=== PATIENT | female | born 1960 | race American Indian/Alaskan Native ===

== ENCOUNTER 2021-08-21 11:04 | Emergency (ER) | payer BC ==
[~2021-08-21] VITALS: Ht 165.1 cm; Wt 86.6 kg
[2021-08-21 12:12] LABS: BASOPHILS ABSOLUTE AUTO 0.06 K/mm3 (0.00-0.23); BASOPHILS PERCENT AUTO 1 % (0-2); EOSINOPHILS ABSOLUTE AUTO 0.21 K/mm3 (0.00-0.68); EOSINOPHILS PERCENT AUTO 3 % (0-6); Hematocrit 48.5 % (33.0-51.0); Hemoglobin 15.5 g/dL (11.5-16.0); IMMATURE GRAN ABSOLUTE AUTO 0.04 K/mm3 (0.00-0.10); IMMATURE GRAN PERCENT AUTO 1 % (0-1); LYMPHOCYTES ABSOLUTE AUTO 1.36 K/mm3 (0.84-5.20); LYMPHOCYTES PERCENT AUTO 16 % (21-46); MONOCYTES PERCENT AUTO 10 % (4-13); Mean Corpuscular HGB 33.7 pg (26.0-34.0); Mean Corpuscular Volume 105 fL (80-100); Mean Platelet Volume 11.2 fL (9.1-12.4); NEUTROPHILS ABSOLUTE AUTO 5.96 K/mm3 (1.96-9.15); NEUTROPHILS PERCENT AUTO 71 % (41-73); Platelet Count 195 K/mm3 (150-400); RDW Standard Deviation 62.1 fL (35.1-46.3); White Blood Cell Count 8.43 K/mm3 (4.00-11.30)
[2021-08-21 12:29] LABS: Albumin/Globulin Ratio 1.2 (0.8-1.8); Bilirubin, Total 0.8 mg/dL (0.1-1.0); Bun/Creatinine Ratio 21.9 (12.0-20.0); Calcium, Blood 9.1 mg/dL (8.5-10.1); Creatinine, Blood 0.87 mg/dL (0.40-1.00); Globulin, Blood 3.4 g/dL (2.2-4.0); Potassium, Blood 4.6 mmol/L (3.5-5.5); Total Protein, Blood 7.4 g/dL (6.4-8.2)
== END 2021-08-21 14:27 | disposition home or self-care (01) ==
LOC: ER 11:04
PROVIDERS: Physician Assistant
DX: J84.9 Interstitial pulmonary disease, unspecified (principal); R94.31 Abnormal electrocardiogram [ECG] [EKG]; J43.9 Emphysema, unspecified; Z99.81 Dependence on supplemental oxygen
CPT/HCPCS: 36415; 71046; 80053; 83880; 84484; 85025; 93005; 93010; 99283-25

== ENCOUNTER 2021-10-27 09:41 | Day surgery (SDC) | payer BC ==
[~2021-10-27] VITALS: Ht 165.1 cm; Wt 83.5 kg
[~2021-10-27 09:41] MED LIST: LEVSOD75 PO; MYCOPHENOLATE500 M2 PO; OMEP20ER PO; OYSTER SHELL 51 EAC2 PO; Prozac20 MG PO; THERA-D2000 UNIT PO; TOPI25 PO
--- NOTE | 2021-10-27 12:25 | NUR ---
PT TO RECOVERY ROOM POST PROCEDURE. PT AWAKE AND CONVERSING APPROPRIATELY; DENIES PAIN POST PROCEDURE. MONITOR SR 60'S, B/P 119/83, SPO2 96% ON OXIMIZER, AFEBRILE. R RADIAL SITE NO SWELLING/HEMATOMA, TR BAND IN PLACE; RUE POSITIVE PLEUTH POST TR BAND PLACEMENT. R AC NO SWELLING/HEMATOMA, NADIR AND TEGADERM DRSG INTACT. PT'S AT BEDSIDE, ATTENTIVE.
--- NOTE | 2021-10-27 12:50 | NUR ---
PT TRANSITIONED TO 4L NC, SPO2 92-94%. PT DENIES FEELING SOB.
--- NOTE | 2021-10-27 13:35 | NUR ---
PT HAVING BUBBLE STUDY PERFORMED.
--- NOTE | 2021-10-27 15:00 | NUR ---
PT DRESSED SELF WITH MINIMAL ASSISTANCE. TR BAND REMOVED, CLOTH DOT AND WRIST IMMOBILIZER PLACED; IV REMOVED-CANNULA INTACT. PT DECLINED SLING.
--- NOTE | 2021-10-27 15:09 | NUR ---
PT AND RECEIVED DISCHARGE INSTRUCTIONS, MED LIST AND AFTER CARE INSTRUCTIONS; VERBALIZED GOOD UNDERSTANDING. PT LEFT FACILITY VIA W/C, CONDITION STABLE.
== END 2021-10-27 15:09 | disposition home or self-care (01) ==
LOC: MHTC 09:41
DX: I25.118 Atherosclerotic heart disease of native coronary artery with other forms of angina pectoris (principal); R94.31 Abnormal electrocardiogram [ECG] [EKG]; I31.3 Pericardial effusion (noninflammatory); I27.20 Pulmonary hypertension, unspecified; J96.11 Chronic respiratory failure with hypoxia; E03.9 Hypothyroidism, unspecified; J84.10 Pulmonary fibrosis, unspecified; J43.9 Emphysema, unspecified; Z87.891 Personal history of nicotine dependence
CPT/HCPCS: 76937; 93308; 93456; 99152; A9270; J1644; J2250; J3010; J7030; Q9967

== ENCOUNTER 2021-12-15 12:54 | Inpatient (IN) | payer BC ==
[~2021-12-15] VITALS: Ht 165.1 cm; Wt 84.2 kg
[~2021-12-15 12:54] MED LIST changes: +ASPI81CH PO; +ONDA4ODT MM; +PROMETHAZINE12.5 M1 PO
[2021-12-15 13:42] LABS: BASOPHILS ABSOLUTE AUTO 0.07 K/mm3 (0.00-0.23); BASOPHILS PERCENT AUTO 1 % (0-2); EOSINOPHILS ABSOLUTE AUTO 0.09 K/mm3 (0.00-0.68); EOSINOPHILS PERCENT AUTO 1 % (0-6); Hematocrit 48.8 % (33.0-51.0); Hemoglobin 15.2 g/dL (11.5-16.0); IMMATURE GRAN ABSOLUTE AUTO 0.05 K/mm3 (0.00-0.10); IMMATURE GRAN PERCENT AUTO 1 % (0-1); LYMPHOCYTES ABSOLUTE AUTO 0.94 K/mm3 (0.84-5.20); LYMPHOCYTES PERCENT AUTO 11 % (21-46); MONOCYTES ABSOLUTE AUTO 0.64 K/mm3 (0.16-1.47); MONOCYTES PERCENT AUTO 7 % (4-13); Mean Corpuscular HGB 31.2 pg (26.0-34.0); Mean Corpuscular HGB Conc 31.1 g/dL (31.5-36.5); Mean Corpuscular Volume 100 fL (80-100); Mean Platelet Volume 11.7 fL (9.1-12.4); NEUTROPHILS ABSOLUTE AUTO 7.09 K/mm3 (1.96-9.15); NEUTROPHILS PERCENT AUTO 80 % (41-73); NRBC ABSOLUTE 0.02 K/mm3 (0.00-0.02); NRBC Auto 0.2 /100 WBC (0.0-0.2); Platelet Count 208 K/mm3 (150-400); RDW Coefficient Variation 16.2 % (11.7-14.2); RDW Standard Deviation 58.2 fL (35.1-46.3); Red Blood Cell Count 4.87 M/mm3 (3.80-5.20); White Blood Cell Count 8.88 K/mm3 (4.00-11.30)
[2021-12-15 14:05] LABS: Albumin, Blood 3.3 g/dL (3.4-5.0); Bilirubin, Total 1.6 mg/dL (0.1-1.0); Bun/Creatinine Ratio 22.5 (12.0-20.0); Calcium, Blood 9.3 mg/dL (8.5-10.1); Creatinine, Blood 0.89 mg/dL (0.40-1.00); Globulin, Blood 3.4 g/dL (2.2-4.0); Potassium, Blood 4.6 mmol/L (3.5-5.5); Total Protein, Blood 6.7 g/dL (6.4-8.2)
[2021-12-15 16:04] LABS: Albumin, Blood 3.5 g/dL (3.4-5.0); Albumin/Globulin Ratio 1.1 (0.8-1.8); Bilirubin, Direct 0.6 mg/dL (0.0-0.3); Bilirubin, Indirect 1.1 mg/dL (0.1-0.7); Bilirubin, Total 1.7 mg/dL (0.1-1.0); Globulin, Blood 3.3 g/dL (2.2-4.0); Total Protein, Blood 6.8 g/dL (6.4-8.2)
[2021-12-15] MEDS ORDERED: SILD25T PO (17:49)
[2021-12-15] MEDS ORDERED: OMEP20ER PO (17:50)
--- NOTE | 2021-12-15 19:48 | NUR ---
ADMISSION: REPORT RECEIVED FROM POWERTRAIN CALIBRATION ENGINEER. PT TO UNIT AT ABOUT 1910, A/O ABLE TO SLIDE SELF FROM GURNEY TO BED. SOME SOB WITH EXERTION, PT ABLE TO RECOVER QUICKLY AFTER RESTING. PT IS ON 7L HIGH FLOW NC, WHICH IS PT BASELINE. UNABLE TO GET ACCURATE PULSE OX READING DUE TO PT HAVING RAYNAUD'S DISEASE. RT CALLED TO TROUBLE SHOOT. PT DOES NOT APPEAR TO HAVE INCREASED WOB OR RESPIRATORY DISTRESS, DENIES CP. PT DENIES ABD PAIN OR N/V AT THIS TIME. IV FLUIDS INFUSING. REPORT GIVEN AT BEDSIDE TO NEFTALI WAITE RN.
--- NOTE | 2021-12-16 04:13 | NUR ---
SHIFT SUMMARY PATIENT ADMITTED FOR ACUTE MARGARET, SURGICAL CONSULT WITH . A&OX4 NPO SINCE MIDNIGHT. IV FLUIDS RUNNING. PATIENT HAS HX OF PULMNARY FIBROSIS, AND EDEMA. BASELINE 7 L NC, CURRENTLY 7 L HIGHFLOW WITH SATS 88-91%. HX OF RAYNAUDS SO PULSE OX IS NOT ALWAYS OBTAINABLE. PATIENT DENIES CHEST PAIN SOB AT THIS TIME, DOES GET WINDED AND INCREASED WOB WHEN UP TO THE BATHROOM. SHE AMBULATES WITH THE FWW, AND 1 ASSIST. DENIES N/V AT THIS TIME. DENIES NEED FOR PAIN MEDICATION. VOIDS DARK TEA COLOR URINE, SMALL STOOLS PASSED THIS SHIFT, SEMAJ COLORED. VSS. CALL LIGHT IN REACH, REPORT TO DAY RN.
[2021-12-16 05:21] LABS: BASOPHILS ABSOLUTE AUTO 0.08 K/mm3 (0.00-0.23); BASOPHILS PERCENT AUTO 1 % (0-2); EOSINOPHILS ABSOLUTE AUTO 0.07 K/mm3 (0.00-0.68); EOSINOPHILS PERCENT AUTO 1 % (0-6); Hematocrit 49.8 % (33.0-51.0); Hemoglobin 14.8 g/dL (11.5-16.0); IMMATURE GRAN ABSOLUTE AUTO 0.09 K/mm3 (0.00-0.10); IMMATURE GRAN PERCENT AUTO 1 % (0-1); LYMPHOCYTES PERCENT AUTO 16 % (21-46); MONOCYTES ABSOLUTE AUTO 0.74 K/mm3 (0.16-1.47); MONOCYTES PERCENT AUTO 8 % (4-13); Mean Corpuscular HGB 31.2 pg (26.0-34.0); Mean Corpuscular HGB Conc 29.7 g/dL (31.5-36.5); NEUTROPHILS ABSOLUTE AUTO 7.28 K/mm3 (1.96-9.15); NEUTROPHILS PERCENT AUTO 74 % (41-73); Platelet Count 190 K/mm3 (150-400); RDW Coefficient Variation 16.5 % (11.7-14.2); RDW Standard Deviation 61.6 fL (35.1-46.3); Red Blood Cell Count 4.75 M/mm3 (3.80-5.20); White Blood Cell Count 9.86 K/mm3 (4.00-11.30)
[2021-12-16 05:24] LABS: Mean Corpuscular Volume 105 fL (80-100)
[2021-12-16 06:03] LABS: Albumin, Blood 2.8 g/dL (3.4-5.0); Albumin/Globulin Ratio 0.9 (0.8-1.8); Bilirubin, Total 1.7 mg/dL (0.1-1.0); Bun/Creatinine Ratio 31.4 (12.0-20.0); Calcium, Blood 8.2 mg/dL (8.5-10.1); Creatinine, Blood 0.86 mg/dL (0.40-1.00); Potassium, Blood 4.9 mmol/L (3.5-5.5); Total Protein, Blood 5.8 g/dL (6.4-8.2)
--- NOTE | 2021-12-16 13:00 | NUR ---
patient to imaging via [facility]
--- NOTE | 2021-12-16 17:44 | NUR ---
SHIFT SUMMARY NO ACUTE CHANGES THIS SHIFT. PATIENT HAD IMAGING DONE TODAY, DR GEORGE RULED OUT CHOLECYSTITIS, SCHEDULED A CT FOR TOMMORROW TO DETERMINE SOURCE OF ABDOMINAL PAIN/NAUSEA/DIARRHEA. PATIENT TOLERATING REGULAR DIET AT THIS TIME. VOIDING WELL, HAS HAD DIARRHEA A COUPLE TIMES TODAY. AMBULATING WELL WITH FWW TO BR. CALLS APPROPRIATELY, WILL REPORT TO ONCOMING RN.
--- NOTE | 2021-12-17 05:12 | NUR ---
SHIFT SUMMARY: PATIENT HAS HAD NO BM'S, PAIN OR NAUSEA THIS SHIFT. UP TO THE BATHROOM WITH ASSIST X1. 02 UP TO 8L FOR ACTIVITY. IVF ARE INFUSING PER MAR. CALL CROCKETT IS WITH IN REACH.
--- NOTE | 2021-12-17 16:05 | NUR ---
SHIFT SUMMARY NO ACUTE CHANGES THIS SHIFT. PATIENT DENIES ABDOMINAL PAIN T/O DAY, HAS HAD INTERMITTENT NAUSEA & EMESIS X1. MINIMAL APPETITE R/T N/V. UP TO BATHROOM WELL SBA T/O DAY. VOIDING WELL. REMIANS ON 7L O2 VIA HIGH FLOW NASAL CANULA. CALLS APPROPRIATELY, WILL REPORT TO ONCOMING RN.
[2021-12-18 04:58] LABS: Hematocrit 49.9 % (33.0-51.0); Hemoglobin 15.6 g/dL (11.5-16.0); Mean Corpuscular HGB 32.1 pg (26.0-34.0); Mean Corpuscular HGB Conc 31.3 g/dL (31.5-36.5); Mean Corpuscular Volume 103 fL (80-100); Mean Platelet Volume 11.9 fL (9.1-12.4); NRBC ABSOLUTE 0.08 K/mm3 (0.00-0.02); NRBC Auto 0.7 /100 WBC (0.0-0.2); Platelet Count 177 K/mm3 (150-400); RDW Coefficient Variation 17.6 % (11.7-14.2); RDW Standard Deviation 60.8 fL (35.1-46.3); Red Blood Cell Count 4.86 M/mm3 (3.80-5.20)
[2021-12-18 05:17] LABS: Albumin, Blood 3.3 g/dL (3.4-5.0); Anion Gap 11 mmol/L (6-16); Blood Urea Nitrogen 33 mg/dL (8-24); Bun/Creatinine Ratio 33.8 (12.0-20.0); CO2, Blood 20 mmol/L (21-32); Calcium, Blood 8.2 mg/dL (8.5-10.1); Chloride, Blood 111 mmol/L (98-108); Creatinine, Blood 0.98 mg/dL (0.40-1.00); Glomerular Filtration Rate 65 (60-); Glucose, Blood 103 mg/dL (70-99); Magnesium, Blood 2.4 mg/dL (1.6-2.4); Phosphorus, Blood 3.1 mg/dL (2.5-4.9); Potassium, Blood 4.7 mmol/L (3.5-5.5); Sodium, Blood 142 mmol/L (136-145)
--- NOTE | 2021-12-18 06:27 | NUR ---
PT APPEARED TO SLEEP FOR MAJORITY OF NIGHT. PT DENIED ABD PAIN/N/V, REP +FLATUS. PT REP SHE IS BEGINNING TO FEEL A LITTLE HUNGRY THIS AM. O2 SATS 89-92% ON 7-9L HIGH FLOW O2. PT IS SOB W/EXERTION, REP SHE FEELS MORE SOB THAN BASELINE. O2 SAT DIFFICULT TO OBTAIN R/T REYNAUDS. IVF CONT PER ORDERS.
[2021-12-18 13:44] LABS: Albumin, Blood 3.5 g/dL (3.4-5.0); Albumin/Globulin Ratio 1.2 (0.8-1.8); Bilirubin, Direct 0.8 mg/dL (0.0-0.3); Bilirubin, Indirect 0.5 mg/dL (0.1-0.7); Bilirubin, Total 1.3 mg/dL (0.1-1.0); Total Protein, Blood 6.5 g/dL (6.4-8.2)
--- NOTE | 2021-12-18 18:41 | NUR ---
SHIFT SUMMARY PATIENT ALERT AND ORIENTED THROUGHOUT SHIFT. 7L O2 VIA NC IS BASELINE. SOB WITH EXERTION, SBA TO AMBULATE INTO BATHROOM. INTERMITTENT NAUSEA, SCHEDULED REGLAN AND PRN ZOFRAN. ECHO COMPLETED LATE IN SHIFT. PLAN FOR DISCHARGE TOMORROW 12/19/21 AND FOLLOW UP WITH GI FOR EGD. RATES ABD PAIN 1-2/10. DECLINES PAIN MEDS. TOLERATED SMALL AMOUNTS OF PO INTAKE. FLUID RESTRICTION OF 1500 MLS STARTED THIS SHIFT. LASIX DOSE INCREASED TO BID. ATTENTIVE IN ROOM DURING AFTERNOON.
--- NOTE | 2021-12-19 07:40 | NUR ---
PT VSS T/O NIGHT, SATS >90% ON 7LO2 PER BASELINE. PT STILL NEEDS ON INC TO 9L W/AMB. PT REP WOB SOMEWHAT IMPOVED THIS AM. LUNGS DIM W/CRACKLES IN BASES, PT HAS OCC PROD COUGH. PT DENIED ABD PAIN/N/V, REP +FLATUS. PT AMB W/FWW+SBA, REP TIFFANY AMB BETTER THIS AM.
[2021-12-19 10:55] LABS: BASOPHILS ABSOLUTE AUTO 0.09 K/mm3 (0.00-0.23); BASOPHILS PERCENT AUTO 1 % (0-2); EOSINOPHILS ABSOLUTE AUTO 0.13 K/mm3 (0.00-0.68); EOSINOPHILS PERCENT AUTO 1 % (0-6); Hematocrit 50.8 % (33.0-51.0); Hemoglobin 15.6 g/dL (11.5-16.0); IMMATURE GRAN ABSOLUTE AUTO 0.11 K/mm3 (0.00-0.10); IMMATURE GRAN PERCENT AUTO 1 % (0-1); LYMPHOCYTES ABSOLUTE AUTO 1.52 K/mm3 (0.84-5.20); LYMPHOCYTES PERCENT AUTO 14 % (21-46); MONOCYTES ABSOLUTE AUTO 0.91 K/mm3 (0.16-1.47); MONOCYTES PERCENT AUTO 8 % (4-13); Mean Corpuscular HGB 31.3 pg (26.0-34.0); Mean Corpuscular HGB Conc 30.7 g/dL (31.5-36.5); Mean Corpuscular Volume 102 fL (80-100); Mean Platelet Volume 12.1 fL (9.1-12.4); NEUTROPHILS ABSOLUTE AUTO 8.49 K/mm3 (1.96-9.15); NEUTROPHILS PERCENT AUTO 75 % (41-73); NRBC ABSOLUTE 0.06 K/mm3 (0.00-0.02); NRBC Auto 0.5 /100 WBC (0.0-0.2); Platelet Count 172 K/mm3 (150-400); RDW Coefficient Variation 17.8 % (11.7-14.2); RDW Standard Deviation 61.7 fL (35.1-46.3); Red Blood Cell Count 4.98 M/mm3 (3.80-5.20); White Blood Cell Count 11.25 K/mm3 (4.00-11.30)
[2021-12-19 11:01] LABS: Bicarbonate Venous 21.8 mmol/L (24.0-30.0); PCO2 Venous 40.5 mmHg (38-42); pH Blood Venous 7.35 (7.34-7.37)
[2021-12-19 11:16] LABS: Magnesium, Blood 1.9 mg/dL (1.6-2.4)
[2021-12-19 11:41] LABS: Albumin, Blood 3.2 g/dL (3.4-5.0); Bilirubin, Total 1.4 mg/dL (0.1-1.0); Bun/Creatinine Ratio 33.5 (12.0-20.0); Calcium, Blood 8.5 mg/dL (8.5-10.1); Creatinine, Blood 0.96 mg/dL (0.40-1.00); Globulin, Blood 3.1 g/dL (2.2-4.0); Potassium, Blood 3.7 mmol/L (3.5-5.5); Total Protein, Blood 6.3 g/dL (6.4-8.2)
--- NOTE | 2021-12-19 12:10 | NUR ---
TRANSFER SUMMARY REPORT PROVIDED TO LEIGH GARCIA, ICU TRANSFER
--- NOTE | 2021-12-19 12:30 | NUR ---
Pt arrived from surgical floor Alert and oriented, SR, SBP > 100. Feels short of breath, difficult to get accurate O2Sat reading due to cool hands and feet, on 10L HF NC. Pt states she is on 7L NC at home with O2 Sat goal of 88-92%. ABG done showing PaO2 of 47.5. Placed on NRB at 15L. Transported to CT department. CT head and abdomen completed, CTA chest completed. Pt tolerated well. at bedside, both pt and oriented to ICU. All questions answered.
--- NOTE | 2021-12-19 12:30 | NUR ---
PT AMB W/FWW ON 9LNC (BASELINE WITH AMB) TO BRP AT 1130. APPROX 1140 PT PULLED BRP CALL LIGHT, PSYCHIATRIC NURSE CALLED ME CONOR WITH PT REP OF DIZZINESS/LIGHTHEADEDNESS. PT FACIAL APPEARANCE WAS HERNANDEZ/DRAINED OF COLOR, EYES WERE OPEN, ANSWERING QUESTIONS APPROPRIATELY. WHEELED CHAIR INTO BRP, 2 PP MAX ASSIST TO PIVOT TO CHAIR, MOVED INTO ROOM, ELEVATED BLE, TOOK VITAL SIGNS CHARTED, CALLED DOCTOR WHO CAME RIGHT AWAY TO ROOM. THEN ALONG CAME NURSING SUPER, AND ICU CHARGE. MAX ASSIST BACK TO BED, PLACED IN [place], VITAL SIGNS TAKEN CHARTED. DOCTOR ORDERED BOLUS AND TRANSFER TO ICU.
[2021-12-19 13:21] LABS: PCO2 Arterial 36.3 mmHg (35-45); pH Blood Arterial 7.38 (7.35-7.45)
[2021-12-19 13:22] LABS: PO2 Arterial 47.5 mmHg (80-100)
--- NOTE | 2021-12-19 14:07 | NUR ---
CANINE ENFORCEMENT OFFICER AT 1210 WAS ASKED TO SEE PATIENT ON THE SURGICAL FLOOR. SHE RECIENTLY WAS UP TO THE BATHROOM BUT SUDDENLY DROPPED HER BP AND BECAME VERY PALE. SHE WAS ABLE TO GET BACK TO BED WITH STAFF ASSISTANCE. HER BP WAS 50/40 THEN 60/40'S THEN 80'S/70'S WHILE LAYING [place] IN BED. DR ESTRADA WAS AT BEDSIDE AND WANTED PT TO BE MOVED TO ICU FOR POSSIBLE PRESSURES. ONCE SHE WAS TRANSFERED TO ICU HER BP CAME UP. HE DECIDED NOT TO GIVE THE BOLUS AND SHE IS TO BE PCU STATUS. SHE COMPLAINED OF ACUTE HEADACHE AND WAS ALSO COMPLAINING OF UPPER MIDLINE ABDOMINAL PAIN. HER OXYGENATION WENT DOWN TO 80'S ON 8-10L NC ABG DONE AND PO2 WAS 47. SHE WAS PUT ON 15L FACEMASK AND BROUGHT DOWNT TO CT. ROSANNA Pedro RN IN ICU ASSUMED CARE OF PATIENT. DR ESTRADA WAS INFORMED OF THE ABG RESULTS AND WE ARE AWAITING CT RESULTS.
[2021-12-19 15:16] LABS: Bilirubin, Direct 1.1 mg/dL (0.0-0.3)
[2021-12-19 16:26] LABS: Influenza A, PCR NEGATIVE (NEGATIVE); Influenza B, PCR NEGATIVE (NEGATIVE); Resp Syncytial Virus, PCR NEGATIVE (NEGATIVE); SARS-Cov-2 (COVID-19) PCR, MMC NEGATIVE (NEGATIVE)
--- NOTE | 2021-12-19 18:43 | NUR ---
END OF SHIFT SUMMARY ALERT AND ORIENTED TOLERATING BIPAP WELL, SPO2 98% DENIES NAUSEA, NO VOMITING, BS HYPOACTIVE VOIDS, NO URINE OUTPUT SINCE ADMIT TO ICU BUT VOIDED 700ML IMMEDIATELY PRIOR TO TRANSFER SKIN INTACT, BRUISING TO PREVIOUS IV SITES AND LAB DRAW SITES. AT BEDSIDE. ALL QUESTIONS ANSWERED. PIV X1, ATTEMPTED TO PLACE 2ND PIV WITHOUT SUCCESS.
--- NOTE | 2021-12-19 22:27 | NUR ---
ASSUMPTION OF CARE: ASSSUMED CARE OF PT AT 1900. PT IS ALERT AND ORIETED IN BED AT THIS TIME. BIPAP MASK IS IN PLACE WHEN RECIEVING BEDSIDE REPORT BY ROSANNA GARCIA. BIPAP SETTINGS AT THIS TIME 10/5, FIO2 60%; PT TOLERATING WELL WITH O2 LEVELS 98<. RT ROMINA BY DURING SHIFT REPORT AND PLACED PT ON 13 L VIA OXYMIZER AND PT TOLERATING WELL WITH HER 02 LEVELS 92< AND NO C/O SOB OR DYSPNEA. PT HAS BEEN PLEASANT AND COOPERATIVE WITH CARE. PT A&O X 4 AND HAS INDEPENDENT BED MOBILITY. S1/S2 ASCULTATED WITH HR IN THE 70'S, SBP 90'S, AND MAP 65<; NO C/O CHEST PAIN. PT CARMINE SOUNDS ARE CLEAR BILAT IN THE UPPER LOBES AND DIMINISHED BILAT IN THE LOWER LOBES. PT BASELINE O2 REQUIREMENTS ARE 7 L VIA NC AT HOME. PT HAS HYPOACTIVE BS IN ALL FOUR QUADRANTS AND IS TOLERATING PO LIQUIDS AND REGULAR DIET ORDERS. PT REQUESTED JELLO WITH PM MEDS AND TOLERATED WELL. PT CURRENTLY HAS A [address]. PT HAS ROM X 4 EXTREMITIES, PPP X 4, AND EXTREMITIES WARM BUT HANDS COLD WITH HX OF RAUNAUDS. PT BACK TO SLEEP AFTER ASSESSMENT. BED LOWERED, CALL LIGHT IN REACH, WILL CONTINUE TO MONITOR.
[2021-12-20 00:10] LABS: HBSAG SCREEN Negative (Negative); HCV AB <0.1 (0.0-0.9); HEP A AB, IGM Negative (Negative); HEP B CORE AB, IGM Negative (Negative)
[2021-12-20 03:50] LABS: BASOPHILS ABSOLUTE AUTO 0.07 K/mm3 (0.00-0.23); BASOPHILS PERCENT AUTO 1 % (0-2); EOSINOPHILS ABSOLUTE AUTO 0.21 K/mm3 (0.00-0.68); EOSINOPHILS PERCENT AUTO 2 % (0-6); Hematocrit 45.5 % (33.0-51.0); Hemoglobin 14.6 g/dL (11.5-16.0); IMMATURE GRAN ABSOLUTE AUTO 0.08 K/mm3 (0.00-0.10); IMMATURE GRAN PERCENT AUTO 1 % (0-1); LYMPHOCYTES ABSOLUTE AUTO 1.91 K/mm3 (0.84-5.20); LYMPHOCYTES PERCENT AUTO 21 % (21-46); MONOCYTES ABSOLUTE AUTO 0.85 K/mm3 (0.16-1.47); MONOCYTES PERCENT AUTO 10 % (4-13); Mean Corpuscular HGB 31.8 pg (26.0-34.0); Mean Corpuscular HGB Conc 32.1 g/dL (31.5-36.5); Mean Corpuscular Volume 99 fL (80-100); Mean Platelet Volume 12.2 fL (9.1-12.4); NEUTROPHILS ABSOLUTE AUTO 5.87 K/mm3 (1.96-9.15); NEUTROPHILS PERCENT AUTO 65 % (41-73); NRBC ABSOLUTE 0.04 K/mm3 (0.00-0.02); NRBC Auto 0.4 /100 WBC (0.0-0.2); Platelet Count 150 K/mm3 (150-400); RDW Coefficient Variation 17.5 % (11.7-14.2); RDW Standard Deviation 58.2 fL (35.1-46.3); Red Blood Cell Count 4.59 M/mm3 (3.80-5.20); White Blood Cell Count 8.99 K/mm3 (4.00-11.30)
[2021-12-20 04:27] LABS: Albumin/Globulin Ratio 1.1 (0.8-1.8); Bilirubin, Total 1.3 mg/dL (0.1-1.0); Calcium, Blood 8.6 mg/dL (8.5-10.1); Creatinine, Blood 0.96 mg/dL (0.40-1.00); Globulin, Blood 2.7 g/dL (2.2-4.0); Potassium, Blood 3.6 mmol/L (3.5-5.5); Total Protein, Blood 5.7 g/dL (6.4-8.2)
--- NOTE | 2021-12-20 06:45 | NUR ---
SHIFT SUMMARY: NO ACUTE CHANGES THIS SHIFT. PT ON OXYMIZER @ 13 L FOR THE MAJORITY OF THE SHIFT AND MAINTAINED O2 LEVELS 92<. PT PUT BACK ON BIPAP EARLY THIS MORNING TO MAINTAIN SPO2 92<. GELLY PROTECTENT PAD PLACED TO PROTECT SKIN FROM BREAKDOWN WHILE USING BIPAP. PT WAS ABLE TO TRANSFER TO BEDSIDE COMMODE THIS MORNING TO VOID WITH BIPAP IN PLACE AND MINIMAL ASSISTANCE; PT TOLERATED WELL. URINE OUTPUT AT 850 AND URINE DARK, ROSANNA. PT SLEPT IN AND OUT THROUGHOUT THE NIGHT. PT HAD NO C/O OF ABD PAIN OR SOB THIS SHIFT. PT C/O NAUSEA THIS MORNING AND MEDICATED WITH REGLAN PER EMAR. PT VSS. BED LOWERED AND CALL LIGHT IN PLACE. WILL CONTINUE TO MONITOR UNTIL ONCOMING RN ARRIVES.
--- NOTE | 2021-12-20 14:37 | NUR ---
Pt. was awake in bed and welcomed my visit. Pt. is pleasant. Established rapport, andnormalized the Pt. experience. Pt. is new to the community so also normalized the citizen experience. Pt. displayed evidence of being encouraged. Pt. verbalized gratitude for the spiritual care visit. WIll continue to montior Pt.
--- NOTE | 2021-12-20 16:48 | NUR ---
SHIFT SUMMARY NO ACUTE CHANGES THIS SHIFT. PT HAS REMAINED ALERT AND ORIENTED WHEN AWAKE. PT DENIES SOB AT REST. PT OFF BIPAP MOST OF THIS SHIFT ON 14L O2 NC. VITAL SIGNS STABLE. NS INFUSING TKO. PT TAKING IN PO INTAKE WELL THIS SHIFT. PT REPORTS SHE DOES NOT FEEL THE URGE TO VOID. PT HAS REPOSITIONED SELF IN BED INDEPENDENTLY. PT SPOUSE AT BEDSIDE THIS SHIFT. WILL CONTINUE TO MONITOR AND REPORT OFF TO ONCOMING RN.
--- NOTE | 2021-12-20 19:30 | NUR ---
ASSUMED CARE. ASSISTED BACK TO BED, AOX3, ABLE TO MAKE NEEDS KNOWN. LS DIM IN BASES, DYSPNEA WITH ANY TYPE OF MOVEMENT. DIFFICULT TO GET GOOD PLETH ON HER FOR SATS DUE TO HAIR DISEASE. HAVE TRIED EVERY AREA FOR SATS BUT WAS NOT ABLE TO GOOD ENOUGH READING. LS DIM IN BASES. PRODUCTIVE COUGH WITH PHLYEM. DENIES PAIN. WEAK BILATERALLY. SINUS ON MONITOR WITH RATE 70'S. BP SOFT. MILD EDEMA BLE. ABD SOFT, POOR APPTITE, NAUSEA, NO EMESIS. STATES SHE IS COLD ALL THE TIME. WARM BLANKETS GIVEN. WILL MONITOR.
--- NOTE | 2021-12-20 20:48 | NUR ---
SATS CONTINUED TO BE DOWN IN LOW 80'S WITH GOOD PLETH. SHE STATES SHE FELT LIKE SHE WAS NOT GETTING ENOUGH AIR. PLACED ON BIPAP 10 IPAP, 5 EPAP, FIO2 70%. SATS ARE NOW AT 88-90%. CALL LIGHT IN REACH.
--- NOTE | 2021-12-20 21:47 | NUR ---
REPORT GIVEN TO JOSÉ MIGUEL GARCIA FOR PCU 14. PATIENT BEING TRANSFERRED NOW.
--- NOTE | 2021-12-20 22:57 | NUR ---
ARRIVAL TO PCU PT ARRIVED VIA WC. ON 15L HIGH FLOW NC. PT ALERT, AND TALKING WITH STAFF. PT C/O SOB. ONE ASSIST TRANSFER FROM WC TO BED. RT IN ROOM AND SWITCHED PT BACK TO BIPAP WITH IMPROVED SOB.
--- NOTE | 2021-12-21 06:40 | NUR ---
SHIFT SUMMARY NO ACUTE EVENTS T/O NIGHT. PT SWITCHED BETWEEN AIRVO, BIPAP, AND HFNC. SPO2 LOW 90'S. PT HAS NOT VOIDED SINCE BEING TRANSFERRED. DENIES THE URGE TO GO AND STATES SHE WILL CALL WHEN SHE IS READY. PER PT SHE VOIDED PRIOR TO BEING TRANSFERRED. VSS. NEW IV PLACED ALIN D/T PREVIOUS BEING PAINFUL. NS TKO INFUSING. SEE SHIFT ASSESSMENT FOR FURTHER DETAILS.
[2021-12-21 08:36] LABS: Bicarbonate Venous 22.9 mmol/L (24.0-30.0); PCO2 Venous 48.3 mmHg (38-42); pH Blood Venous 7.34 (7.34-7.37)
[2021-12-21 08:37] LABS: Base Excess Venous 0.2 mmol/L
[2021-12-21 08:45] LABS: BASOPHILS ABSOLUTE AUTO 0.05 K/mm3 (0.00-0.23); BASOPHILS PERCENT AUTO 1 % (0-2); EOSINOPHILS ABSOLUTE AUTO 0.35 K/mm3 (0.00-0.68); EOSINOPHILS PERCENT AUTO 3 % (0-6); Hematocrit 49.2 % (33.0-51.0); Hemoglobin 15.4 g/dL (11.5-16.0); IMMATURE GRAN ABSOLUTE AUTO 0.07 K/mm3 (0.00-0.10); IMMATURE GRAN PERCENT AUTO 1 % (0-1); LYMPHOCYTES ABSOLUTE AUTO 1.44 K/mm3 (0.84-5.20); LYMPHOCYTES PERCENT AUTO 13 % (21-46); MONOCYTES ABSOLUTE AUTO 0.87 K/mm3 (0.16-1.47); MONOCYTES PERCENT AUTO 8 % (4-13); Mean Corpuscular HGB 31.6 pg (26.0-34.0); Mean Corpuscular HGB Conc 31.3 g/dL (31.5-36.5); Mean Corpuscular Volume 101 fL (80-100); Mean Platelet Volume 12.5 fL (9.1-12.4); NEUTROPHILS ABSOLUTE AUTO 8.04 K/mm3 (1.96-9.15); NEUTROPHILS PERCENT AUTO 74 % (41-73); NRBC ABSOLUTE 0.03 K/mm3 (0.00-0.02); NRBC Auto 0.3 /100 WBC (0.0-0.2); Platelet Count 168 K/mm3 (150-400); RDW Coefficient Variation 17.6 % (11.7-14.2); RDW Standard Deviation 61.1 fL (35.1-46.3); Red Blood Cell Count 4.88 M/mm3 (3.80-5.20); White Blood Cell Count 10.82 K/mm3 (4.00-11.30)
[2021-12-21 09:04] LABS: Albumin, Blood 3.2 g/dL (3.4-5.0); Albumin/Globulin Ratio 1.1 (0.8-1.8); Bilirubin, Total 1.4 mg/dL (0.1-1.0); Bun/Creatinine Ratio 27.7 (12.0-20.0); Calcium, Blood 8.7 mg/dL (8.5-10.1); Creatinine, Blood 0.94 mg/dL (0.40-1.00); Globulin, Blood 2.8 g/dL (2.2-4.0); Potassium, Blood 3.5 mmol/L (3.5-5.5)
--- NOTE | 2021-12-21 10:57 | NUR ---
Pt. is awake in bed and welcomes my visit. Pt. is pleasant and rapport is re-established. Facilitate a life review focusing on the Pts. health needs. Establish that Pt. has a support system from her neighbors. Listen empathetically with a calming presence and pastoral support. Pt. verbalizes that her wants her to come home, but that she is more comfortable making sure her treatments are successful. Normalize the Pt. experience. Prayed with Pt. Pt. verbalized gratitude for the spiritual care visit.
--- NOTE | 2021-12-21 18:09 | NUR ---
SHIFT SUMMARY; ASSUMED CARE AT 0700. A/A/OX4, AIR VO 8L. HX OF HOME O2 7L TO MAINTAIN SATS 88-92%. 1500ML FLUID RESTRICTION. MOVES SELF IN BED NEEDED. UP TO BEDSIDE COMMODE WITH STANDBY ASSIST. FAMILY AT BEDSIDE MOST OF DAY. NO ACUTE MEDICAL CHANGES, VSS, WILL CONTINUE TO MONITOR AND TREAT UNTIL CHANGE OF SHIFT.
--- NOTE | 2021-12-22 05:46 | NUR ---
PT SWITCHED FROM AIRVO TO BIPAP AT 2230. TOLERATING BIPAP WELL. PERIPHERAL IV INTACT. SLEPT MOST OF THE NIGHT. NO COMPLAINTS
--- NOTE | 2021-12-22 19:33 | NUR ---
TRANSFER/SHIFT SUMMARY: PT A&Ox4 T/OUT DAY. ALTERNATING BETWEEN HHFNC AND CPAP T/OUT DAY, O2 SATS >95% WHILE ON CPAP AND VARY WHILE ON HHFNC (86-92%), SR ON MONITOR W/RATE 60-70s. PROVIDER UPDATED VIA TELEPHONE T/OUT DAY, INFORMED THAT PT SEES DR VELAZQUEZ (PULMONOLOGY) AND DR THORNTON (PULM HTN SPECIALIST) OUTPT. DR ESTRADA CONSULTS WITH THESE PROVIDERS AND A DECISION IS MADE TO TRANSFER PT TO HIGHER LEVEL OF CARE. REACH TEAM ARRIVES FOR PT AND ESCORTS PT TO AWAITING AIR TRANSPORT W/OUT INCIDENT. REPORT HAS BEEN GIVEN TO JOSE HARO TO RECEIVE PT.
== END 2021-12-22 19:00 | disposition short-term general hospital (02) | DRG 384 ==
LOC: ER 12:54 → SURS 16:24 → ICUE 12-19 12:17 → PCU 12-20 21:55
PROVIDERS: Physician Assistant; Student in an Organized Health Care Education/Training Program; ADMIT Internal Medicine
DX: K27.9 Peptic ulcer, site unspecified, unspecified as acute or chronic, without hemorrhage or perforation (principal); I27.0 Primary pulmonary hypertension; J96.11 Chronic respiratory failure with hypoxia; E44.0 Moderate protein-calorie malnutrition; K31.84 Gastroparesis; J84.10 Pulmonary fibrosis, unspecified; Z20.822 Contact with and (suspected) exposure to COVID-19; Z66 Do not resuscitate; I73.00 Raynaud's syndrome without gangrene; K21.9 Gastro-esophageal reflux disease without esophagitis; M34.0 Progressive systemic sclerosis; R68.81 Early satiety; I95.9 Hypotension, unspecified; R74.01 Elevation of levels of liver transaminase levels; E80.6 Other disorders of bilirubin metabolism; R79.89 Other specified abnormal findings of blood chemistry; E03.9 Hypothyroidism, unspecified; Z90.49 Acquired absence of other specified parts of digestive tract; Z90.89 Acquired absence of other organs; Z87.891 Personal history of nicotine dependence; Z99.81 Dependence on supplemental oxygen; Z79.82 Long term (current) use of aspirin; Z79.899 Other long term (current) drug therapy
CPT/HCPCS: 0241U; 36415; 36600; 70450; 71046; 71260; 74150; 74177; 76705; 78226; 80053; 80069; 80074; 80076; 82248; 82803; 83605; 83690; 83735; 83880; 84145; 84484; 85025; 85027; 87040; 93306; 94660; 94760; 94762; 96365; 96375; 96376; 99285-25; A9270; A9537; C9113; G0378; J0696; J1940; J2405; J2543; J2765; J3010; J7030; J7040; J7517; Q9967